=== PATIENT | female | born 1990 | race Caucasian/White ===

== ENCOUNTER 2019-09-16 04:54 | Emergency (ER) | payer OTHER ==
[~2019-09-16] VITALS: Ht 157.5 cm; Wt 77.1 kg
--- NOTE | 2019-09-16 04:54 | NUR ---
PT BIB [facility], PREBOOK. TAKEN TO CHAIR C
[2019-09-16 04:56] VITALS: BP 117/50
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
[2019-09-16 05:13] VITALS: BP 117/50
--- NOTE | 2019-09-16 05:13 | NUR ---
Patient discharged with v/s stable. Written and verbal after care instructions given and explained. Patient verbalized understanding. [facility], [facility] with steady gait. All questions addressed prior to discharge. Advised to follow up with PMD.
== END 2019-09-16 05:13 ==
LOC: MED 04:54
DX: Z02.89 Encounter for other administrative examinations (principal); V43.52XA Car driver injured in collision with other type car in traffic accident, initial encounter; Y93.89 Activity, other specified; Y92.488 Other paved roadways as the place of occurrence of the external cause; Y99.8 Other external cause status
CPT/HCPCS: 99283